=== PATIENT | female | born 1985 | race African-American/Black ===

== ENCOUNTER 2018-05-12 14:02 | Emergency (ER) | payer MEDICAID ==
[~2018-05-12] VITALS: Ht 170.2 cm; Wt 90.7 kg
[2018-05-12] MEDS ORDERED: ASPIR 8181 M1 PO (14:13)
[2018-05-12] MEDS ORDERED: ELIQUIS5 MG PO (14:13)
[2018-05-12] MEDS ORDERED: LASIX 20 MG TAB20 MG PO (14:14)
[2018-05-12] MEDS ORDERED: NORCO 10-325 T1 EACH PO (14:14)
[2018-05-12] MEDS ORDERED: CYMBALTA60 MG PO (14:14)
[2018-05-12] MEDS ORDERED: IRON325 PO (14:14)
[2018-05-12] MEDS ORDERED: TYLENOL325 MG PO (14:14)
[2018-05-12] MEDS ORDERED: KLOR-CON 1010 MEQ PO (14:14)
[2018-05-12] MEDS ORDERED: PREDNISONE 5 MG5 M1 PO (14:15)
[2018-05-12] MEDS ORDERED: OXCARBAZEPINE150 MG PO (14:39)
[2018-05-12 14:45] LABS: ABSOLUTE LYMPHOCYTES 0.7 thou/uL (0.8-5.3); ABSOLUTE MONOCYTES 0.7 thou/uL (0.0-1.2); ABSOLUTE NEUTROPHILS 2.3 thou/uL (1.6-8.1); BASOPHILS 0.5 %; EOSINOPHILS 1.1 %; HEMATOCRIT 44.9 % (37.0-47.0); HEMOGLOBIN 14.7 gm/dL (12.0-15.0); LYMPHOCYTES 18.3 %; MCH 27.5 pg (26.0-34.0); MCHC 32.8 g/dL (28.0-37.0); MCV 83.7 fL (80.0-100.0); MONOCYTES 18.9 %; NUCLEATED RBCS 0 /100WBC; PLATELET COUNT* 235 thou/uL (150-400); POLYS 61.2 %; RBC 5.36 mil/uL (4.20-5.00); RDW-CV 17.1 % (10.5-14.5); WBC 3.8 thou/uL (4.0-11.0)
[2018-05-12 14:54] LABS: PROTIME 10.7 Seconds (9.20-11.50)
[2018-05-12 14:55] LABS: ANION GAP 4 mmol/L (7-16); BUN 14 mg/dL (7-18); CHLORIDE 103 mmol/L (98-107); CO2 28 mmol/L (21-32); CREATININE 0.9 mg/dL (0.6-1.3); GLUCOSE 93 mg/dL (70-99); SODIUM 135 mmol/L (136-145)
[2018-05-12 15:19] LABS: ALBUMIN 3.5 g/dL (3.4-5.0); ALKALINE PHOSPHATASE 154 U/L (46-116); LIPASE 205 U/L (73-393); NT-PRO BRAIN NAT PEPTIDE 65 pg/mL (<300); SGOT 41 U/L (15-37); SGPT 83 U/L (30-65); TOTAL BILIRUBIN 0.3 mg/dL (<0.1-1.0); TOTAL PROTEIN 7.9 g/dL (6.4-8.2); TROPONIN-I LEVEL <0.06 ng/mL (<0.06)
--- NOTE | 2018-05-12 17:27 | EKG ---
[place] [address] ELECTROCARDIOGRAM REPORT Name: LUC,CLIFFORD Room: [facility]#: [id number] Admission: 05/12/18 Attend Phys: Discharge: Date of : 81 Report #: [id number] THIS REPORT FOR: //name// [facility] ED Test Date: 2018-05-12 Test Time: 14:22:02 Pat Name: CLIFFORD CALLE Department: Room: Gender: F [employer] Rate [employer]: ELIN : 1985 Requested By: Fly Brown Order Number: [id number] MD: Sami Landaverde Measurements Intervals [place] Rate: 76 P: 45 AR: 133 QRS: 9 QRSD: 79 T: 14 QT: 373 QTc: 420 Interpretive Statements Sinus rhythm No previous ECG available for comparison Electronically Signed On 05-12-2018 17:27:04 CDT by Sami Landaverde [email or web address] <ELECTRONICALLY SIGNED> By: Sami Landaverde MD, [facility] 05/12/18 1727 1422 1422 Sami Landaverde MD, FACC /EPI
[2018-05-12 17:33] VITALS: BP 98/71
== END 2018-05-12 17:35 | disposition short-term general hospital (02) ==
LOC: M.ERS 14:02
PROVIDERS: Emergency Medicine
DX: I63.9 Cerebral infarction, unspecified (principal); M32.9 Systemic lupus erythematosus, unspecified; G62.9 Polyneuropathy, unspecified; Z86.73 Personal history of transient ischemic attack (TIA), and cerebral infarction without residual deficits